=== PATIENT | female | born 1985 | race African-American/Black ===

== ENCOUNTER → 2017-01-21 | Day surgery (SDC) | payer OTHER ==
--- NOTE | 2017-01-13 16:55 | MH ---
cc: CHRISTINE PARKS DATE OF ADMISSION: 01/21/2017 PRINCIPAL DIAGNOSIS Granulomatous mastitis ATTENDING PHYSICIAN Christine Parks MD. HISTORY OF PRESENT ILLNESS The patient is a 31-year-old -English female who required nipple duct excision for granulomatous mastitis in January 2016. She initially did well but again developed swelling and drainage from the right areolar 4 o'clock location which happens approximately once a month. She has reduced her tobacco intake but has been unable to stop smoking completely. She now desires re-excision of the area. ALLERGIES She has no drug allergies. CURRENT MEDICATIONS Cyclobenzaprine 10 mg t.i.d. p.r.n. Mirtazapine 50 mg q.h.s. TriNessa 1 tablet daily. PAST SURGERIES Included excision of an obstructed nipple duct in January 2016. REVIEW OF SYSTEMS 12-point review of systems was noncontributory. PHYSICAL EXAMINATION VITAL SIGNS: She is 5.3 and weighed 147 pounds with a BMI of 26. Blood pressure 121/76, temperature 98, heart rate 74, respirations 16. HEAD, EYES, EARS, NOSE, AND THROAT: The examination was unremarkable. NECK: The neck was supple with no adenopathy or thyromegaly. CHEST: Chest was clear. CARDIOVASCULAR SYSTEM: The Cardiac exam was unremarkable. BREASTS: Exam revealed fibrocystic changes and at 4 o'clock areolar scar with a 3 mm opening in no obvious drainage but there was induration. The remainder of her exam was unremarkable. 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 She desires re-excision of the area and this will be performed in the near future. [facility] number: [id number] MD ASHELY Agrawal/mike /3:46 PM /3:58 PM
[~2017-01-21] MED LIST: BUPIVACAINE HCL PF 0.5% 10 ML VIAL ONE; BUPIVACAINE HCL PF 0.5% 30 ML VIAL ONE; CLIN150 PO; KETOROLAC TROMETHAMINE 30 MG/ML (IVP) VIAL IV PUSH ONE; LACTATED RINGER'S 1000 ML INJ 1,000 ML ONE; MEPERIDINE HCL 25 MG/ML VIAL ONE; MIDAZOLAM HCL 2 MG/2 ML VIAL ONE; MIRT30TA PO; NORG10TA PO; ONDANSETRON HCL 4 MG/2 ML VIAL IV PUSH ONE; PERC5TAB12 PO; PROPOFOL 200 MG/20 ML AMP IV ONE; ceFAZolin 2 GM PREMIX 50 ML ONE
--- NOTE | 2017-01-21 16:00 | TN ---
cc: CHRISTINE PARKS DATE OF SURGERY: 01/21/2017 PRINCIPAL DIAGNOSIS Granulomatous mastitis right breast. POSTOPERATIVE DIAGNOSIS Granulomatous mastitis right breast. 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 ATTENDING PHYSICIAN Christine Parks MD. ANESTHESIA General via LMA device. 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 I advised smoking cessation but she was unable to achieve this. Local excision of the area was performed last year but she subsequently developed recurrence. She now presents for more extensive subareolar duct excision as well as excision of the fistula tract. FINDINGS AT SURGERY There was no evidence of purulence but a moderate amount of inflamed scar tissue was noted in the between 3 and 4 o'clock in the areola adjacent to the nipple. No nipple discharge was identified. PROCEDURE PERFORMED After informed consent was obtained and site verification was performed, the patient was brought to the major operating room where she underwent general anesthesia via LMA device. She was given a single dose of IV Ancef and sequential compression hose were placed. The right breast was prepped and draped in sterile fashion. 0.50% Marcaine plain was used to infiltrate the subareolar tissue between 3 and 4 o'clock in the right breast. An ellipse of overlying inflamed areolar skin was then excised and further sharp dissection was performed to include the subareolar ductal tissue up to the level of the nipple skin. The specimen was oriented with the skin anterior, one long suture laterally, and one short suture superiorly. The specimen was sent for pathologic evaluation. Hemostasis was obtained using electrocautery and the wound was closed using interrupted 3-0 Vicryl subcutaneous sutures and a 4-0 Monocryl subcuticular suture. Steri-Strips and sterile dressing were applied. The patient tolerated the procedure well with an estimated blood loss that was minimal and she was extubated in the operating room and brought to the recovery room in good condition. All sponge and needle counts were correct at the conclusion of the case. MD ASHELY Agrawal/mike /11:24 AM /3:50 PM
== END | disposition home or self-care (01) ==
LOC: ESDC 08:48
PROVIDERS: ATTEND Surgery
DX: N61.0 Mastitis without abscess (principal)
CPT/HCPCS: 00400; 19120; 88305; J0690; J1885; J2175; J2250; J2405; J3010; J7120; 88307